=== PATIENT | female | born 1955 | race Caucasian/White ===

== ENCOUNTER 2016-12-19 20:30 | Emergency (ER) | payer BC ==
[~2016-12-19] VITALS: Ht 167.6 cm; Wt 59.0 kg
--- NOTE | 2016-12-19 20:40 | NUR ---
61 yo female bb parents; Per Parents, patient is have hallucinations. patient is calm and coaperative at this time. denies SI/ HI. pt ambulated to er bed with steady gait, skin warm and dry, rr even and unlabored. no distress noted. will continue to monitor
--- NOTE | 2016-12-19 21:48 | NUR ---
urine sample obtained and sent to lab
[2016-12-19 22:29] LABS: BASOPHILS % (AUTO) 0.5 % (0.0-2.0); EOSINOPHILS % (AUTO) 0.5 % (0.0-6.0); HEMATOCRIT 40 % (33-45); HEMOGLOBIN 13.6 g/dL (11.5-14.8); LYMPHOCYTES # (AUTO) 1.9 /CMM (0.8-4.8); LYMPHOCYTES % (AUTO) 26.6 % (20.0-44.0); MEAN CORPUSCULAR HEMOGLOBIN 29 PG (26.0-33.0); MEAN CORPUSCULAR HGB CONC 34 g/dl (31.0-36.0); MEAN CORPUSCULAR VOLUME 86 fL (82-100); MONOCYTES # (AUTO) 0.5 /CMM (0.1-1.30); NEUTROPHILS # (AUTO) 4.6 /CMM (1.8-8.9); NEUTROPHILS % (AUTO) 65.4 % (43.0-81.0); PLATELET COUNT (AUTO) 322 /CMM (150-450); RDW COEFFICIENT OF VARIATION 12.7 (11.5-15.0); WHITE BLOOD COUNT (AUTO) 7.1 K/uL (4.3-11.0)
[2016-12-19] MEDS ORDERED: LORAZEPAM 1 MG TABLET PO ONE (22:30)
[2016-12-19] MEDS ORDERED: OLANZAPINE 5 MG TABLET PO ONE (22:30)
[2016-12-19 22:34] LABS: APPEARANCE,URINE CLEAR (CLEAR); BILIRUBIN,URINE NEGATIVE (NEGATIVE); BLOOD, URINE 1+ Ery/uL (NEGATIVE); COLOR,URINE YELLOW (YELLOW); KETONES,URINE 1+ (NEGATIVE); LEUKOCYTE ESTERASE ,URINE NEGATIVE (NEGATIVE); NITRITE, URINE NEGATIVE (NEGATIVE); PH,URINE 6.5 (5.0-8.0); PROTEIN,URINE NEGATIVE (NEGATIVE); UGLUCOSE NEGATIVE (NEGATIVE); UROBILINOGEN,URINE 0.2 EU/dL (0.2)
[2016-12-19 22:39] LABS: BACTERIA,URINE None seen /HPF (None Seen); SQUAMOUS EPITHELIAL CELL,UR Few /HPF (None Seen)
[2016-12-19 22:42] LABS: CALCIUM, SERUM 9.2 mg/dL (8.5-10.1); CARBON DIOXIDE 28 mmol/L (21-32); CHLORIDE 99 mmol/L (98-107); CREATININE 0.6 mg/dL (0.6-1.3); GLUCOSE 92 mg/dL (74-106); POTASSIUM 3.1 mmol/L (3.5-5.1); SODIUM SERUM 137 mmol/L (136-145); UREA NITROGEN, BLOOD 9 mg/dL (7-18)
[2016-12-19 22:51] LABS: ACETAMINOPHEN 0 ug/ml (10-30); ALANINE AMINOTRANSFERASE 24 U/L (12-78); ALBUMIN 3.9 g/dL (3.4-5.0); ALCOHOL, BLOOD < 3 mg/dL (0-0); ALKALINE PHOSPHATASE 72 U/L (46-116); ASPARTATE AMINOTRANSFERASE 19 U/L (15-37); BILIRUBIN,DIRECT 0.1 mg/dL (0.0-0.2); BILIRUBIN,TOTAL 0.6 mg/dL (0.2-1.0); TOTAL PROTEIN, SERUM 7.7 g/dL (6.4-8.2)
--- NOTE | 2016-12-19 23:09 | NUR ---
CALLED [employer] APPOINTMENT COORDINATOR.
[2016-12-19] MEDS ORDERED: LORAZEPAM 1 MG TABLET ONE (23:21)
[2016-12-19] MEDS ORDERED: OLANZAPINE 5 MG TABLET ONE (23:21)
[2016-12-19] MEDS ORDERED: POTASSIUM CHLORIDE 20 MEQ TAB.PRT.SR PO ONE ×2 (23:21→23:30)
--- NOTE | 2016-12-19 23:26 | NUR ---
pt medicated as ordered.
--- NOTE | 2016-12-19 23:46 | NUR ---
maverick greco apple packing header here for psych eval.
--- NOTE | 2016-12-19 23:59 | NUR ---
pt calm and cooperative at this time.
--- NOTE | 2016-12-20 01:29 | NUR ---
pt cleared for psych per maverick greco lcsw. Patient discharged to home in stable condition. Written and verbal after care instructions given. Patient verbalizes understanding of instruction. ambulatory with a steady gait noted. pt [id number] no acute distress noted, resp even and unlabored. pt remains pain free at this time. pt denies si or hi at this time.
[2016-12-20 01:31] VITALS: BP 127/63
== END 2016-12-20 01:39 | disposition home or self-care (01) ==
LOC: ER 20:38
DX: F29 Unspecified psychosis not due to a substance or known physiological condition (principal); E87.6 Hypokalemia; Z88.0 Allergy status to penicillin; Z91.040 Latex allergy status
CPT/HCPCS: 36415; 80048; 80076; 80305; 80329; 81001; 85025; 99284; A4606; G0480 ×2; 81000-TC; Z7610